=== PATIENT | female | born 1990 | race Caucasian/White ===

== ENCOUNTER 2016-12-17 13:53 | Inpatient (IN) | payer OTHER ==
[~2016-12-17] VITALS: Ht 162.6 cm; Wt 75.7 kg
[~2016-12-17 13:53] MED LIST: NORCO 7.5-3251 EACH PO
[2016-12-17 14:50] LABS: HEMOGLOBIN 12.1 gm/dl (12.3-15.3); RED BLOOD COUNT 4.13 M/UL (4.00-5.10)
[2016-12-18 04:23] LABS: HEMOGLOBIN 11.2 gm/dl (12.3-15.3)
== END 2016-12-19 15:18 | disposition home or self-care (01) | DRG 775 ==
LOC: GENOP 13:53 → OB 14:35 → ZEROF 22:24 → OB 22:24
PROVIDERS: Obstetrics & Gynecology; ADMIT Obstetrics & Gynecology
PROC: 0KQM0ZZ Repair Perineum Muscle, Open Approach (ICD-10-PCS; principal; 2016-12-17)
PROC: 10E0XZZ Delivery of Products of Conception, External Approach (ICD-10-PCS; 2016-12-17)
PROC: 10907ZC Drainage of Amniotic Fluid, Therapeutic from Products of Conception, Via Natural or Artificial Opening (ICD-10-PCS; 2016-12-17)
PROC: 3E0R3CZ (ICD-10-PCS; 2016-12-17)
DX: O48.0 Post-term pregnancy (principal); O99.824 Streptococcus B carrier state complicating childbirth; O70.1 Second degree perineal laceration during delivery; Z3A.40 40 weeks gestation of pregnancy; Z37.0 Single live birth; Z83.3 Family history of diabetes mellitus; Z82.49 Family history of ischemic heart disease and other diseases of the circulatory system; Z80.9 Family history of malignant neoplasm, unspecified
CPT/HCPCS: 36415; 51702; 81001; 82800; 85014; 85018; 85025; J2590; J2795; J3010; J7120

== ENCOUNTER 2021-03-24 17:48 | Inpatient (IN) | payer OTHER ==
[~2021-03-24 17:48] MED LIST changes: +COLACE 100MG C100 MG PO; +IBUPROFEN600 MG PO; +LORTAB 5-325 M1 EACH PO; +PRENATAL VITAM1 EAC8 PO
[2021-03-24 20:45] LABS: HEMOGLOBIN 10.6 gm/dl (12.3-15.3); RED BLOOD COUNT 3.53 M/UL (4.00-5.10); WHITE BLOOD COUNT 7.1 K/UL (4.5-11.0)
[2021-03-25] MEDS ORDERED: IBUPROFEN800 MG PO (19:33)
[2021-03-25] MEDS ORDERED: COLACE100 MG PO (19:33)
[2021-03-26 06:14] LABS: HEMOGLOBIN 9.9 gm/dl (12.3-15.3)
[2021-03-27 07:11] LABS: DRVVT 34.2 sec (0.0-47.0); LUPUS REFLEX INTERPRETATION Comment: (.); PT 10.3 sec (9.1-12.0); PT 1:1NP 10.3 sec (9.1-12.0)
== END 2021-03-26 11:32 | disposition home or self-care (01) | DRG 806 ==
LOC: GENOP 17:48 → OB 17:54
PROVIDERS: Obstetrics & Gynecology; ADMIT Obstetrics & Gynecology
PROC: 10E0XZZ Delivery of Products of Conception, External Approach (ICD-10-PCS; principal; 2021-03-25)
PROC: 4A1HXCZ Monitoring of Products of Conception, Cardiac Rate, External Approach (ICD-10-PCS; 2021-03-25)
PROC: 3E0P7VZ Introduction of Hormone into Female Reproductive, Via Natural or Artificial Opening (ICD-10-PCS; 2021-03-25)
PROC: 00HU33Z Insertion of Infusion Device into Spinal Canal, Percutaneous Approach (ICD-10-PCS; 2021-03-25)
PROC: 3E0R3BZ Introduction of Anesthetic Agent into Spinal Canal, Percutaneous Approach (ICD-10-PCS; 2021-03-25)
DX: O36.4XX0 Maternal care for intrauterine death, not applicable or unspecified (principal); R18.8 Other ascites; Z37.1 Single stillbirth; O69.1XX0 Labor and delivery complicated by cord around neck, with compression, not applicable or unspecified; Z3A.32 32 weeks gestation of pregnancy; O75.89 Other specified complications of labor and delivery
CPT/HCPCS: 36415; 80307; 81001; 85007; 85014; 85018; 85027; 85611; J0690; J1885; J2405; J2590; J2795; J3010; J7120; U0002